=== PATIENT | male | born 1990 | race Caucasian/White ===

== ENCOUNTER 2023-06-23 07:37 | Emergency (ER) | payer OTHER, MEDICAID, SELFPAY ==
[2023-06-23 07:46] VITALS: BP 136/70; PULSE 71; RESP 18; TEMP 36.6; O2SAT 96
[2023-06-23] MEDS: ORPHENADRINE CITRATE 100 MG TABLET.ER PO (08:08)
[2023-06-23] MEDS: KETOROLAC 30 MG/ML VIAL (*BKC) IM (08:08)
--- NOTE | 2023-06-23 08:15 | ED.NECK ---
HPI - Neck Pain/Injury General Chief Complaint: Neck Pain/Injury Stated Complaint: neck pain Time Seen by Provider: 06/23/23 07:51 History of Present Illness HPI Narrative: This is a 32-year-old male, denies significant past medical history, presenting to the emergency department complaining of neck pain. The patient states he was in his usual state of health this morning when he yawned and turned his neck and felt a cramping dull pain on the right side. He denies recent trauma or manipulation of the neck. His pain is aggravated by attempts to turn the head towards the right. He denies weakness, numbness, loss of consciousness, bowel or bladder incontinence or loss of sensation in the groin. Related Data Allergies Allergy/AdvReac Type Severity Reaction Status Date / Time No Known Allergies Allergy Verified 06/23/23 07:51 Review of Systems Review of Systems: CONSTITUTIONAL: Denies fever, chills, or sweats. ENT: Denies rhinorrhea, congestion, sore throat, or otalgia. CARDIOVASCULAR: Denies chest pain, palpitations, or edema. RESPIRATORY: Denies cough or dyspnea. GASTROINTESTINAL: Denies abdominal pain, nausea, vomiting, or diarrhea. GENITOURINARY: Denies dysuria or hematuria. SKIN: Denies rash or itching. MUSCULOSKELETAL: Right-sided neck pain denies back pain, joint pain, or myalgia. NEUROLOGIC: Denies headache, numbness, dizziness, or weakness. PSYCHIATRIC: Denies anxiety or depression. PMFSH Past Medical History Medical History No significant past medical history Surgical History Surgical History No significant past surgical history Social History Social History (Updated 06/23/23 @ 08:20 by Christiano Huitron MD) Smoking status: Never smoker Alcohol intake: current Substance use: current Substance use type: marijuana Exam Narrative: GENERAL: Well-developed, well-nourished, and in no acute distress. HEAD: Normocephalic, atraumatic. EYES: PERRLA and EOMI. ENT: Nares clear, no rhinorrhea or epistaxis. Mucous membranes moist. Oropharynx without tonsillar hypertrophy exudate or other lesions. NECK: Supple. Muscle spasm of the left sternocleidomastoid, with mild tenderness to palpation of the right paraspinal muscles. No midline spine tenderness to palpation, no step-off or crepitus. No adenopathy or masses. No JVD CHEST: Clear to auscultation. No respiratory distress. No wheezes rales or rhonchi HEART: Regular rate and rhythm. No murmur heard. Normal peripheral pulses. ABDOMEN: Soft, nontender, nondistended, normal active bowel sounds. EXTREMITIES: Normal range of motion. No edema. SKIN: Warm, dry, no rash. NEURO: No focal deficits. Alert and oriented x3. PSYCH: Normal mood and affect. Course Course Emergency Course: 10:25 - On reevaluation, the patient states his pain is not significantly improved, however his range of motion and on exam has improved. Will discharge with recommendation for NSAIDs, lidocaine patches, muscle relaxants and follow-up with his primary care doctor. Discussed return and emergency precautions including signs/symptoms of cauda equina. Patient voiced understanding and is comfortable with the plan. All questions answered to his satisfaction. Vital Signs Vital signs: Vital Signs Temperature 97.8 F 06/23/23 07:46 Pulse Rate 71 06/23/23 07:46 Respiratory Rate 18 06/23/23 07:46 Blood Pressure 136/70 06/23/23 07:46 Pulse Oximetry 96 06/23/23 07:46 Oxygen Delivery Room Air 06/23/23 07:46 Temperature 97.8 F 06/23/23 07:46 Pulse Rate 71 06/23/23 07:46 Respiratory Rate 18 06/23/23 07:46 Blood Pressure 136/70 06/23/23 07:46 Pulse Oximetry 96 06/23/23 07:46 Oxygen Delivery Room Air 06/23/23 07:46 MDM - Neck Pain/Injury MDM Narrative Medical decision making narrative: Plan: Pain control, reassess Differen
[2023-06-23] MEDS: LIDOCAINE 5% PATCH 1 PATCH TRANSDERM (10:50)
[2023-06-23 11:01] VITALS: RESP 18
== END 2023-06-23 10:50 | disposition home or self-care (01) ==
PROVIDERS: Emergency Provider Preventive Medicine Aerospace Medicine
DX: S16.1XXA Strain of muscle, fascia and tendon at neck level, initial encounter (principal); X50.9XXA Other and unspecified overexertion or strenuous movements or postures, initial encounter
CPT/HCPCS: 96372; 99283; A9270; J1885

== ENCOUNTER 2024-10-14 12:37 | Outpatient (CLI) | payer BC, SELFPAY ==
--- NOTE | ~2024-10-14 | XR_ITS ---
EXAMINATION: XR lumbar spine 2-3V DATE: 10/14/2024 13:33 INDICATION: Chronic back pain. TECHNIQUE: 3 views of lumbar spine were obtained. COMPARISON: None. FINDINGS: Alignment is normal. Vertebral body heights and intervertebral disc heights are normal. The re is multilevel mild facet joint osteoarthritis. IMPRESSION: 1. Mild lumbar facet joint osteoarthritis. Reviewed, dictated and finalized at location A. F ENGINEER [employer]RILLING [employer] RECOVERY
--- NOTE | ~2024-10-14 | XR_ITS ---
EXAMINATION: XR sacrum coccyx min 2V DATE: 10/14/2024 13:33 INDICATION: Chronic back pain. TECHNIQUE: 3 views of the sacrum and coccyx were obtained. COMPARISON: None. FINDINGS: Alignment is normal. No fracture. The sacroiliac joints are normal. IMPRESSION: 1. Normal sacrum and coccyx. Reviewed, dictated and finalized at location A. MANAGER
[2024-10-14 13:12] LABS: Basophils Absolute Auto 0.1 K/mm3 (0.0-0.1); Basophils Percent Auto 1.2 % (0.2-1.2); Eosinophils Absolute Auto 0.5 K/mm3 (0-0.3); Eosinophils Percent Auto 5.9 % (0-4.4); Hemoglobin 15.5 g/dL (14.0-18.0); Immature Granulocyte Absolute 0.02 K/mm3 (0.00-0.031); Immature Granulocyte Percent A 0.3 % (0-0.5); Lymphocytes Absolute Auto 2.94 K/mm3 (0.9-3.2); Lymphocytes Percent Auto 38.8 % (18.3-44.2); Mean Corpuscular HGB Conc 33.7 g/dl (32-36); Mean Corpuscular Hemoglobin 31.6 pg (26-34); Mean Corpuscular Volume 93.7 fl (80-100); Mean Platelet Volume 10.5 fl (7.4-10.4); Monocytes Absolute Auto 1.3 K/mm3 (0.1-0.6); Monocytes Percent Auto 17.2 % (2.6-8.5); Neutrophils Absolute Auto 2.8 K/mm3 (1.3-6.7); Neutrophils Percent Auto 36.6 % (45.5-73.1); Platelet Count Result 213 k/mm3 (150-375); Red Blood Count 4.91 M/mm3 (4.6-6.20); White Blood Count 7.6 K/mm3 (4.5-10.0)
[2024-10-14 15:10] LABS: Free T4 Free Thyroxine 0.73 ng/mL (0.78-2.19)
[2024-10-14 16:22] LABS: Alanine Aminotransferase 36 U/L (6-50); Albumin Level 4.5 g/dL (3.5-5.1); Alkaline Phosphatase 44 U/L (38-126); Anion Gap 9 mmol/L (4-12); Aspartate Amino Transferase 36 U/L (17-59); Bilirubin,Total 0.4 mg/dL (0.2-1.3); Blood Urea Nitrogen 15 mg/dL (9-20); Calcium 9.4 mg/dL (8.4-10.2); Carbon Dioxide 24 mmol/L (22-30); Chloride 104 mmol/L (98-107); Cholesterol 223 mg/dL (0-200); Estimated Glomerular Filt Rate > 60; Glucose 87 mg/dL (65-110); HDL Direct 45 mg/dL; Potassium 4.2 mmol/L (3.4-5.0); Sodium 137 mmol/L (137-145); Triglycerides 193 mg/dL (<150)
[2024-10-14 16:34] LABS: LDL Cholesterol Direct 124 mg/dL
[2024-10-14 16:53] LABS: Total Triiodothyronine (T3) 1.17 NG/ML (0.97-1.69)
== END 2024-10-14 12:38 | disposition home or self-care (01) ==
PROVIDERS: Visit Provider Registered Nurse
DX: G89.29 Other chronic pain (principal); M54.9 Dorsalgia, unspecified; E78.5 Hyperlipidemia, unspecified; R53.83 Other fatigue
CPT/HCPCS: 36415; 72100; 72220; 80053; 80061; 84439; 84443; 84480; 85025

== ENCOUNTER 2024-12-29 02:21 | Emergency (ER) | payer BC, SELFPAY ==
--- NOTE | ~2024-12-29 | CT_ITS ---
EXAMINATION: CTA chest PE abdomen pel DATE: 12/29/2024 04:15 INDICATION: Chest and abdominal pain. TECHNIQUE: Computed tomography (CT) pulmonary angiogram of the chest was performed with 100 mL Omnipa que-350 intravenous contrast. Additional 3D reconstructions utilizing coronal maximum intensity proje ction (MIP) were performed. CT of the abdomen and pelvis was performed with intravenous contrast util izing the same contrast bolus following a short delay. Automated exposure control and iterative recon struction technique were employed. The dose-length product was 1413.08 mGy-cm. COMPARISON: None FINDINGS: Chest: No pulmonary embolism. Mild emphysema. Mild bibasilar and dependent atelectasis in the bilateral lowe r lungs. No pneumonia, pulmonary edema or pleural effusion. Heart size is normal. No pericardial effu sharon. Thoracic aorta is normal in caliber with no dissection. There is small amount of residual thymi c tissue in the anterior mediastinum. No pathologically enlarged thoracic lymphadenopathy. Mild thora columbar spondylosis with mild likely physiologic anterior wedging at T12. Abdomen/pelvis: Liver, gallbladder, spleen, pancreas, bilateral adrenal glands and kidneys are normal. Bowels includi ng the appendix are normal. Bladder is normal. Small fat-containing right inguinal hernia. No free in traperitoneal gas or fluid. No pathologically enlarged abdominal or pelvic lymphadenopathy. Right int ratrochanteric bone island. IMPRESSION: 1. Mild atelectasis in the bilateral lower lungs. No pulmonary embolism or other acute cardiopulmonar y disease. 2. No acute intra-abdominal/pelvic process. Reviewed, dictated and finalized at location A. NG IN LINE FEEDER IMPRESSION: 1. Mild atelectasis in the bilateral lower lungs. No pulmonary embolism or othe r acute cardiopulmonary disease. 2. No acute intra-abdominal/pelvic process.
--- NOTE | ~2024-12-29 | XR_ITS ---
EXAMINATION: XR chest 1V portable DATE: 12/29/2024 03:12 INDICATION: Shortness of breath TECHNIQUE: frontal view of the chest was obtained. COMPARISON: Chest CT dated 12/29/2024 FINDINGS: Decreased lung volumes with streaky mild bibasilar atelectasis. No pulmonary edema, pleural effusion or pneumothorax. The cardiomediastinal silhouette is normal. Visualized bones and soft tissues are un remarkable. IMPRESSION: 1. Small lung volumes with mild bibasilar atelectasis. Reviewed, dictated and finalized at location A. RVISOR SEWING DEPARTMENT
--- OUTSIDE RECORDS SUMMARY | 2024-12-29 02:23 | XMS_ITS | Clinical Summary ---
Author Organization [facility] Address [address] [place] [address] Phone Care Team Providers Care Credit Risk Modeler Name Role Phone Unavailable Primary Care Provider Unavailabl e Allergies No known active allergies Medications HYDROcodone-jonny taminophen (NORCO) 5-325 mg tabletIndicatio ns:Intercostal muscle strain, initial encounter Take 1 Tablet by mouth every 4 hours as needed for Pain. Max Daily Amount: 6 Tablets 10 Tablet 12/27/2024 Active methocarbamoL (ROBAXIN) 500 mg tablet Take 1 Tablet (500 mg) by mouth 4 times daily. 30 Tablet 12/27/2024 Active Encounters Date Type Department Care Team Description 12/27/2024 9:29 AM EMPLOYEE SERVICES MANAGER - 12/27/2024 1:03 PM EMPLOYEE SERVICES MANAGER Emergency [facility] Emergency Department [id number] [place] [address] Intercostal muscle strain, initial encounter (Primary Dx) Discharge Disposition: Home or Self Care 12/27/2024 Travel from Last 3 Months Social History Tobacco Use Types Packs/Day Years Used Date Smoking Tobacco: Unknown Tobacco Cessation:Counseling Given: Not Answered Feeling Safe Answer Date Recorded Are you in a relationship wi th someone who hurts you emotionally and/or physically? No 12/27/2024 Sex and Gender Information Value Date Recorded Sex Assigned at Not on file Legal Sex Male 8:46 AM EMPLOYEE SERVICES MANAGER Gender Identity Not on file Sexual Orientation Not on file Last Filed Vital Signs Vital Sign Reading Time Taken Comments Blood Pressure 115/67 12/27/2024 12:33 PM EMPLOYEE SERVICES MANAGER Pulse 56 12/27/2024 12:33 PM EMPLOYEE SERVICES MANAGER Temperature 36.7 ??C (98.1 ??F) 12/27/2024 8:50 AM CS T Respiratory Rate 19 12/27/2024 8:50 AM EMPLOYEE SERVICES MANAGER Oxygen Saturation 98% 12/27/2024 12:33 PM EMPLOYEE SERVICES MANAGER Inhaled Oxygen Concentration - - Weight 104.3 kg (230 lb) 12/27/2024 8:50 AM EMPLOYEE SERVICES MANAGER Height 177.8 cm (5' 10 ) 12/27/2024 8:50 AM EMPLOYEE SERVICES MANAGER Body Mass Index 33 12/27/2024 8:50 AM EMPLOYEE SERVICES MANAGER Plan of Treatment Health Maintenance Due Date Last Done Comments DTAP/TDAP/TD VACCINES (1 - Tdap) 2009 HEPATITIS B VACCINES (1 of 3 - 19+ 3-dose series) 2009 INFLUENZA VACCINE (#1) 2024 HPV VACCINES Aged Out No longer eligi ble based on patient's age to complete this topic Procedures Procedure Name Priority Date/Time Associated Diagnosis Comments XR RIBS UNILATERAL RIGHT W PA CHEST Stat 12/27/2024 10:27 AM EMPLOYEE SERVICES MANAGER COMPREHENSIVE METABOLIC PANEL Stat 12/27/2024 8:58 AM EMPLOYEE SERVICES MANAGER CBC WITH DIFFERENTIAL Stat 12/27/2024 8:58 AM EMPLOYEE SERVICES MANAGER from Last 3 Months Results * XR RIBS UNILATERAL RIGHT W PA CHEST (12/27/2024 10:27 AM EMPLOYEE SERVICES MANAGER) Anatomical Region Laterality Modality Chest Computed Radiogr aphy 12/27/2024 10:2 7 AM EMPLOYEE SERVICES MANAGER Impressions 12/27/2024 10:32 AM EMPLOYEE SERVICES MANAGER IMPRESSION: 1. No acute pulmonary disease. 2. No rib fracture. DICTATION LOCATION: Location 7 [facility] 12/27/2024 10:32 AM EMPLOYEE SERVICES MANAGER XR RIBS UNILATERAL RIGHT W PA CHEST DATE: 12/27/2024 10:27 AM HISTORY: Pain. FINDINGS: The heart size is normal. The lungs are clear. No pleural effusion or pneumothorax present. The ribs are intact. No fracture or displacement. Procedure Note Ayaz Rosales MD - 12/27/2024 XR RIBS UNILATERAL RIGHT W PA CHEST DATE: 12/27/2024 10:27 AM HISTORY: Pain. FINDINGS: The heart size is normal. The lungs are clear. No pleural effusion or pneumothorax present. The ribs are intact. No fracture or displacement. IMPRESSION: 1. No acute pulmonary disease. 2. No rib fracture. DICTATION LOCATION: Location 7 - [facility] ORDERABL ES Final Result * (ABNORMAL) CBC WITH DIFFERENTIAL (12/27/2024 8:58 AM EMPLOYEE SERVICES MANAGER) WBC 10.0(H) 4.0 - 9.8 K/uL 12/27/2024 9:10 AM [facility] RBC 4.94 4.50 - 5.40 M/uL 12/27/2024 9:10 AM [facility] HEMOGLOBIN 15.7 13.6 - 16.5 g/dL 12/27/2024 9:10 AM [facility] HEMATOCRIT 46.1 40.0 - 48.0 % 12/27/2024 9:10 AM [facility] MCV 93.3 82.0 - 99.0 fL 12/27/2024 9:10 AM [facility] MCH 31.8 27.2 - 32.6 pg 12/27/2024 9:10 AM [facility] MCHC 34.1 31.5 - 35.5 g/dL 12/27/2024 9:10 AM [facility] RDW 13.2 11.5 - 14.5 % 12/27/2024 9:10 AM [facility] RDW-STDEV 45.0 37.1 - 48.7 fL 12/27/2024 9:10 AM [facility] PLATELETS 248 140 - 350 K/uL 12/27/2024 9:10 AM [facility] MPV 10.1 9.3 - 12.4 fL 12/27/2024 9:10 AM [facility] NEUTROPHILS 44 % 12/27/2024 9:10 AM [facility] LYMPHOCYTES 40 % 12/27/2024 9:10 AM [facility] MONOCYTES 11 % 12/27/2024 9:10 AM EMPLOYEE SERVICES MANAGER [facility] EOSINOPHILS 4 % 12/27/2024 9:10 AM [facility] BASOPHILS 1 % 12/27/2024 9:10 AM [facility] IMMATURE GRANULOCYTES 1 % 12/27/2024 9:10 AM [facility] Comment:IG (Immature Granulo cyte) count includes Metamyelocytes, Myelocytes, and Promyelocytes NEUTROPHIL ABSOLUTE 4.41 1.90 - 7.00 K/uL 12/27/2024 9:10 AM [facility] LYMPHOCYTE ABSOLUTE 3.97 0.70 - 4.50 K/uL 12/27/2024 9:10 AM [facility] MONOCYTE ABSOLUTE 1.05 0.10 - 1.30 K/uL 12/27/2024 9:10 AM [facility] EOSINOPHIL ABSOLUTE 0.35 0.00 - 0.70 K/uL 12/27/2024 9:10 AM [facility] BASOPHILS ABSOLUTE 0.11 0.00 - 0.20 K/uL 12/27/2024 9:10 AM [facility] IMMATURE GRANULOCYTES ABSOLUTE 0.08(H) 0.00 - 0.03 K/uL 12/27/2024 9:10 AM [facility] Blood Venipuncture / Unknown 12/27/2024 8:58 AM EMPLOYEE SERVICES MANAGER 12/27/2024 9:03 AM EMPLOYEE SERVICES MANAGER us Protocol [facility] MD HEMATOLOGY ORDERABLES Final Result [facility] CLIA# [id number] [place] [address] * (ABNORMAL) COMPREHENSIVE METABOLIC PANEL (12/27/2024 8:58 AM EMPLOYEE SERVICES MANAGER) SODIUM 139 136 - 145 mmol/L 12/27/2024 9:35 AM [facility] POTASSIUM 4.3 3.4 - 5.1 mmol/L 12/27/2024 9:35 AM [facility] CHLORIDE 105 98 - 107 mmol/L 12/27/2024 9:35 AM [facility] CO2 24 22 - 29 mmol/L 12/27/2024 9:35 AM [facility] CALCIUM 9.9 8.6 - 10.4 mg/dL 12/27/2024 9:35 AM [facility] BUN 21(H) 6 - 20 mg/dL 12/27/2024 9:35 AM [facility] CREATININE 1.09 0.67 - 1.17 mg/dL 12/27/2024 9:35 AM [facility] GLUCOSE 116(H) 74 - 99 mg/dL 12/27/2024 9:35 AM [facility] TOTAL PROTEIN 6.9 6.3 - 8.7 g/dL 12/27/2024 9:35 AM [facility] ALBUMIN 4.2 3.5 - 5.2 g/dL 12/27/2024 9:35 AM [facility] BILIRUBIN TOTAL 0.3 0.3 - 1.2 mg/dL 12/27/2024 9:35 AM [facility] ALKALINE PHOSPHATASE 49 40 - 150 U/L 12/27/2024 9:35 AM [facility] AST 20 0 - 41 U/L 12/27/2024 9:35 AM [facility] ALT 25 0 - 41 U/L 12/27/2024 9:35 AM [facility] GFR >60 >=60 mL/min/1.7 3 sq meter 12/27/2024 9:35 AM [facility] Comment:eGFR calculated with 2020 CKD-EPI equation. Vegetarian diet, extremely high or low muscle mass, and may affect results. Cystatin C with Glomerular Filtration Rate is a suitable alternative for these patients. ANION GAP 10 8 - 16 mmol/L 12/27/2024 9:35 AM [facility] Blood Venipuncture / Unknown 12/27/2024 8:58 AM EMPLOYEE SERVICES MANAGER 12/27/2024 9:07 AM EMPLOYEE SERVICES MANAGER us Protocol [facility] MD CHEMISTRY ORDERABLES Final Result [facility] CLIA# [id number] [place] [address] from Last 3 Months Insurance [facility] MYKEL MARTINEZ [id number]
--- OUTSIDE RECORDS SUMMARY | 2024-12-29 02:23 | XMS_ITS | Referral Summary ---
Author Organization [facility] Address [address] [place] [address] Care Team Providers Care Back Gray Cloth Washer Name Role Phone Haroon Landon MD Primary Care Provider [phone] Geovanna Blum MD Unavailable [phone] Encounters Date Type Department Care Team Description 11/13/2024 1:00 PM FABRIC WORKER SUPERVISOR Clinical Support [facility] Reproductive Endocrinology Lab [address] [address] Encounter for fertility testing (Primary Dx) 11/13/2024 7:02 AM FABRIC WORKER SUPERVISOR - 11/13/2024 11:59 PM FABRIC WORKER SUPERVISOR Hospital Encounter [facility] [address] [address] Discharge Disposition: Discharge to home or self care from Last 3 Months Allergies Active Allergy Reactions Criticality Noted Date Comments No Known Allergies Other (See comments) Low Reaction: Medications SUMAtriptan (IMITREX) 50 mg tabletIndicatio ns:Migraine 0 05/09/2018 Active fluticasone (FLONASE) 50 mcg/actuation nasal spray SPRAY 2 SPRAYS IN EACH NOSTRIL EVERY DAY 06/26/2017 Active Active Problems No known active problems Social History Tobacco Use Types Packs/Day Years Used Date Smoking Tobacco: Every Day Smokeless Tobacco: Never Sex and Gender Information Value Date Recorded Sex Assigned at Not on file Legal Sex Male 6:50 PM FABRIC WORKER SUPERVISOR Gender Identity Male 06/01/2018 12:33 PM CDT Sexual Orientation Not on file Last Filed Vital Signs Vital Sign Reading Time Taken Comments Blood Pressure 146/87 07/13/2018 1:52 PM CDT Pulse 57 07/13/2018 1:52 PM CDT Temperature 36.4 ??C (97.5 ??F) 05/11/2018 7:43 PM CD T Respiratory Rate 18 05/11/2018 9:56 PM CDT Oxygen Saturation 98% 05/11/2018 7:43 PM CDT Inhaled Oxygen Concentration - - Weight 90.7 kg (200 lb) 05/11/2018 7:43 PM CDT Height 177.8 cm (5' 10 ) 05/11/2018 7:43 PM CDT Body Mass Index 28.7 05/11/2018 7:43 PM CDT Plan of Treatment Not on file Procedures Procedure Name Priority Date/Time Associated Diagnosis Comments POCT SEMEN Routine 11/13/2024 1:31 PM FABRIC WORKER SUPERVISOR Encounter for fertility testing from Last 3 Months Results * POCT semen (11/13/2024 1:31 PM FABRIC WORKER SUPERVISOR) Volume, Semen POC 4.7 >=1.4 ML Viscosity, Semen, POC Normal Sperm Concentration (M/mL) 61.9 >=16 M/mL pH, Semen, POC 8.5 >=7.2 Progressive Motility (%), POC 45 >=32 % Total Motility, (%), POC 70 >=40 % Total Progressive Motile Count (TPMC) (M), POC 131.1 >=6.7 M Total Motile Count (TMC) (M), POC 204.4 >=9.4 M Normal Morphology, (%) POC 6 >=4 % Viability, (%), POC Comment:N/A DAYS OF ABSTINENCE, SEMEN, POC 3 2 - 5 day(s) Partner Info - Semen Analysis Comment:YANI DONALDSON Semen 11/13/2024 1:31 PM FABRIC WORKER SUPERVISOR Seema Pete BS - 11/13/2024 2:34 PM FABRIC WORKER SUPERVISOR Rito Mary Veras MD POINT OF CARE TEST O RDERABLES Final Result from Last 3 Months Insurance [employer] Care Teams Back Gray Cloth Washer Relationship Specialty Start Date End Date Haroon Landon MD [address] [address] PCP - General Family Medicine 10/04/24 Geovanna Blum MD [address] [address] Pediatrics 10/04/24
--- OUTSIDE RECORDS SUMMARY | 2024-12-29 02:24 | XMS_ITS | Clinical Summary ---
Author Organization [facility] Address [address] [place] [address] Care Team Providers Care Machine Operator Hay Stacker Name Role Phone Haroon Landon MD Primary Care Provider [phone] Geovanna Blum MD Unavailable [phone] Allergies Active Allergy Reactions Criticality Noted Date Comments No Known Allergies Other (See comments) Low Reaction: Medications SUMAtriptan (IMITREX) 50 mg tabletIndicatio ns:Migraine 0 05/09/2018 Active fluticasone (FLONASE) 50 mcg/actuation nasal spray SPRAY 2 SPRAYS IN EACH NOSTRIL EVERY DAY 06/26/2017 Active Active Problems No known active problems Encounters Date Type Department Care Team Description 11/13/2024 1:00 PM BULK MATERIALS HANDLING PLANT OPERATOR Clinical Support [facility] Reproductive Endocrinology Lab [address] [place] [address] [place] [address] Encounter for fertility testing (Primary Dx) 11/13/2024 7:02 AM BULK MATERIALS HANDLING PLANT OPERATOR - 11/13/2024 11:59 PM BULK MATERIALS HANDLING PLANT OPERATOR Hospital Encounter [facility] [address] [place] [address], [address] [place] [address] Discharge Disposition: Discharge to home or self care from Last 3 Months Surgical History Surgery Date Site/Laterality Comments [place] RHINOPLASTY PRIMARY W/TERA OR SEPTAL REPAIR Complete Rhinoplasty (With Major Septal Repair) - (Added by ANNALISA Conv) [place] FRACTURE NASAL INFERIOR TURBINATE THERAPEUTIC Therapeutic Fracture Nasal Turbinate - (Added by ANNALISA Conv) Medical History Medical History Date Comments Personal history of other di seases of the nervous system and sense organs History of migrain e headaches - (Added by TW Conv) Family History Medical History Relation Name Comments No Known Problems Mother Relation Name Status Comments Mother Social History Tobacco Use Types Packs/Day Years Used Date Smoking Tobacco: Every Day Smokeless Tobacco: Never Sex and Gender Information Value Date Recorded Sex Assigned at Not on file Legal Sex Male 6:50 PM BULK MATERIALS HANDLING PLANT OPERATOR Gender Identity Male 06/01/2018 12:33 PM CDT Sexual Orientation Not on file Obstetrics History Last Filed Vital Signs Vital Sign Reading [...] 05/11/2018 7:43 PM CDT Plan of Treatment Health Maintenance Due Date Last Done Comments Depression Screening 1990 Hepatitis C Screening 1990 Pneumococcal vaccine <65 (1 of 2 - PCV) 1996 DTaP/Tdap/Td Vaccine (1 - Tdap) 2001 Varicella Vaccines (1 of 2 - 13+ 2-dose series) 2003 Hepatitis B Screening 2008 Regular Well Visit/Exam 18-64 2008 Covid-19 Vaccine (2 - 2023-2 5 season) 2024 11/15/2021 Influenza Vaccine (#1) 2024 HPV Vaccines Aged Out No longer eligi ble based on patient's age to complete this topic Procedures Procedure Name Priority Date/Time Associated Diagnosis Comments POCT SEMEN Routine 11/13/2024 1:31 PM BULK MATERIALS HANDLING PLANT OPERATOR Encounter for fertility testing from Last 3 Months Results * POCT semen (11/13/2024 1:31 PM BULK MATERIALS HANDLING PLANT OPERATOR) Volume, Semen POC 4.7 >=1.4 ML Viscosity, [...] Analysis Comment:YANI DONALDSON Semen 11/13/2024 1:31 PM BULK MATERIALS HANDLING PLANT OPERATOR Seema Pete, BS - 11/13/2024 2:34 PM RAYMUNDO Veras Mary Veras MD POINT OF CARE TEST O RDERABLES Final Result from Last 3 Months Insurance [facility] Member Subscriber Plan / Payer (Ef fective 2017-Present) Name:Luis Felipe Relation to Subscriber:Self Name:Luis Felipe Payer ID:[id number] (NAIC) Group ID:Not on file Type:MEDICAID RISK OTHER Address: [address] [employer] Care Teams Machine Operator Hay Stacker Relationship Specialty Start Date End Date Haroon Landon MD [address] [address] PCP - General Family Medicine 10/04/24 Geovanna Blum MD [address] [facility] [address] [address] Pediatrics 10/04/24
[2024-12-29 03:03] LABS: Basophils Absolute Auto 0.1 K/mm3 (0.0-0.1); Basophils Percent Auto 0.8 % (0.2-1.2); Eosinophils Absolute Auto 0.6 K/mm3 (0-0.3); Eosinophils Percent Auto 4.8 % (0-4.4); Hematocrit 44.9 % (42.0-52.0); Hemoglobin 15.2 g/dL (14.0-18.0); Immature Granulocyte Absolute 0.05 K/mm3 (0.00-0.031); Immature Granulocyte Percent A 0.4 % (0-0.5); Lymphocytes Absolute Auto 4.75 K/mm3 (0.9-3.2); Lymphocytes Percent Auto 36.7 % (18.3-44.2); Mean Corpuscular HGB Conc 33.9 g/dl (32-36); Mean Corpuscular Hemoglobin 32.1 pg (26-34); Mean Corpuscular Volume 94.7 fl (80-100); Mean Platelet Volume 10.4 fl (7.4-10.4); Monocytes Absolute Auto 1.2 K/mm3 (0.1-0.6); Monocytes Percent Auto 8.9 % (2.6-8.5); Neutrophils Absolute Auto 6.3 K/mm3 (1.3-6.7); Neutrophils Percent Auto 48.4 % (45.5-73.1); Platelet Count Result 222 k/mm3 (150-375); Red Blood Count 4.74 M/mm3 (4.6-6.20); Red Cell Distribution Width 13.2 % (11.5-14.5)
--- NOTE | 2024-12-29 03:05 | ECG_ITS ---
Test Date: 2024-12-29 03:24:10 Measurements Intervals [place] Rate: 60 P: 25 ND: 155 QRS: 0 QRSD: 87 T: 2 QT: 363 QTc: 364 Interpretive Statements SINUS RHYTHM WITH SINUS ARRHYTHMIA VOLTAGE CRITERIA FOR LVH CONSIDER INFERIOR INFARCT, AGE INDETERMINATE BASELINE ARTIFACT- I, II, AVR, AVL, AVF, V4-V6 ABNORMAL ECG No previous ECG available for comparison Electronically Signed On 12-29-2024 08:17:57 HYDROELECTRIC PLANT MECHANICAL ENGINEER by Allen Fajardo D.O.
[2024-12-29] MEDS: MORPHINE SULFATE (*CRX) 4 MG/ML INJ IV PUSH (03:09)
--- OUTSIDE RECORDS SUMMARY | 2024-12-29 03:19 | XMS_ITS | Clinical Summary ---
Author Organization [facility] Address [address] [place] [address] Phone Care Team Providers Care Excelsior Machine Feeder Name Role Phone Unavailable Primary Care Provider [...] Department Care Team Description 12/27/2024 9:29 AM HORTICULTURAL SPECIALTY GR[employer] FIELD - 12/27/2024 1:03 PM [employer]ICULTURAL [employer]TY [employer] Emergency [facility] Emergency Department [address] [place] [address] Intercostal muscle strain, initial encounter [...] on file Legal Sex Male 8:46 AM HORTICULTURAL SPECIALTY [employer] Gender Identity Not on file Sexual Orientation Not on file Last Filed Vital Signs Vital Sign Reading Time Taken Comments Blood Pressure 115/67 12/27/2024 12:33 PM [employer]IC[employer] Pulse 56 12/27/2024 12:33 PM [employer] Temperature 36.7 ??C (98.1 ??F) 12/27/2024 8:50 AM CS T Respiratory Rate 19 12/27/2024 8:50 AM [employer]ICULT[employer] Oxygen Saturation 98% 12/27/2024 12:33 PM [employer]IC[employer] Inhaled Oxygen Concentration - - Weight 104.3 kg (230 lb) 12/27/2024 8:50 AM [employer] Height 177.8 cm (5' 10 ) 12/27/2024 8:50 AM [employer] Body Mass Index 33 12/27/2024 8:50 AM [employer]IC[employer] Plan of Treatment Health Maintenance Due Date [...] W PA CHEST Stat 12/27/2024 10:27 AM [employer] COMPREHENSIVE METABOLIC PANEL Stat 12/27/2024 8:58 AM [employer] CBC WITH DIFFERENTIAL Stat 12/27/2024 8:58 AM [employer]IC[employer] from Last 3 Months Results * XR RIBS UNILATERAL RIGHT W PA CHEST (12/27/2024 10:27 AM HORTICULTURAL SPECIALTY [employer]) Anatomical Region Laterality Modality Chest Computed Radiogr aphy 12/27/2024 10:2 7 AM [employer] Impressions 12/27/2024 10:32 AM [employer] IMPRESSION: 1. No acute pulmonary disease. 2. No rib fracture. DICTATION LOCATION: Location 7 [facility] 12/27/2024 10:32 AM [employer]ICULTURAL SPECIALTY [employer] XR RIBS UNILATERAL RIGHT W PA CHEST [...] rib fracture. DICTATION LOCATION: Location 7 - [facility] [employer] HOGUE DIAGNOSTIC IMAGING ORDERABL ES Final Result * (ABNORMAL) CBC WITH DIFFERENTIAL (12/27/2024 8:58 AM H[employer]ICULTURAL [employer]) WBC 10.0(H) 4.0 - 9.8 K/uL 12/27/2024 9:10 AM [facility] [employer] [facility] RBC 4.94 4.50 - 5.40 M/uL 12/27/2024 9:10 AM [facility] [employer] [facility] HEMOGLOBIN 15.7 13.6 - 16.5 g/dL 12/27/2024 9:10 AM [facility] [employer] [facility] HEMATOCRIT 46.1 40.0 - 48.0 % 12/27/2024 9:10 AM [facility] [employer] [facility] MCV 93.3 82.0 - 99.0 fL 12/27/2024 9:10 AM [facility] [employer] [facility] MCH 31.8 27.2 - 32.6 pg 12/27/2024 9:10 AM [facility] [employer] [facility] MCHC 34.1 31.5 - 35.5 g/dL 12/27/2024 9:10 AM [facility] [employer] [facility] RDW 13.2 11.5 - 14.5 % 12/27/2024 9:10 AM [facility] [employer] [facility] RDW-STDEV 45.0 37.1 - 48.7 fL 12/27/2024 9:10 AM [facility] [employer] [facility] PLATELETS 248 140 - 350 K/uL 12/27/2024 9:10 AM [facility] [employer] [facility] MPV 10.1 9.3 - 12.4 fL 12/27/2024 9:10 AM [facility] [employer] [facility] NEUTROPHILS 44 % 12/27/2024 9:10 AM [facility] [employer] [facility] LYMPHOCYTES 40 % 12/27/2024 9:10 AM [facility] [employer] [facility] MONOCYTES 11 % 12/27/2024 9:10 AM [employer] [facility] [employer] [facility] EOSINOPHILS 4 % 12/27/2024 9:10 AM [facility] BASOPHILS 1 % 12/27/2024 9:10 AM [facility] IMMATURE GRANULOCYTES 1 % 12/27/2024 9:10 AM [facility] Comment:IG (Immature Granulo cyte) count includes Metamyelocytes, Myelocytes, and Promyelocytes NEUTROPHIL ABSOLUTE 4.41 1.90 - 7.00 K/uL 12/27/2024 9:10 AM [facility] LYMPHOCYTE ABSOLUTE 3.97 0.70 - 4.50 K/uL 12/27/2024 9:10 AM [facility] MONOCYTE ABSOLUTE 1.05 0.10 - 1.30 K/uL 12/27/2024 9:10 AM [facility] EOSINOPHIL ABSOLUTE 0.35 0.00 - 0.70 K/uL 12/27/2024 9:10 AM [facility] BASOPHILS ABSOLUTE 0.11 0.00 - 0.20 K/uL 12/27/2024 9:10 AM [facility] IMMATURE GRANULOCYTES ABSOLUTE 0.08(H) 0.00 - 0.03 K/uL 12/27/2024 9:10 AM [facility] Blood Venipuncture / Unknown 12/27/2024 8:58 AM [employer] 12/27/2024 9:03 AM [employer] us Protocol [facility] Emergency MD HEMATOLOGY ORDERABLES Final Result [facility] CLIA# [id number] [place] [address] * (ABNORMAL) COMPREHENSIVE METABOLIC PANEL (12/27/2024 8:58 AM [employer]) SODIUM 139 136 - 145 mmol/L 12/27/2024 9:35 AM [facility] POTASSIUM 4.3 3.4 - 5.1 mmol/L 12/27/2024 9:35 AM [facility] CHLORIDE 105 98 - 107 mmol/L 12/27/2024 9:35 AM [facility] CO2 24 22 - 29 mmol/L 12/27/2024 9:35 AM [facility] CALCIUM 9.9 8.6 - 10.4 mg/dL 12/27/2024 9:35 AM [facility] BUN 21(H) 6 - 20 mg/dL 12/27/2024 9:35 AM [facility] CREATININE 1.09 0.67 - 1.17 mg/dL 12/27/2024 9:35 AM [facility] GLUCOSE 116(H) 74 - 99 mg/dL 12/27/2024 9:35 AM [facility] TOTAL PROTEIN 6.9 6.3 - 8.7 g/dL 12/27/2024 9:35 AM [facility] ALBUMIN 4.2 3.5 - 5.2 g/dL 12/27/2024 9:35 AM [facility] BILIRUBIN TOTAL 0.3 0.3 - 1.2 mg/dL 12/27/2024 9:35 AM [facility] ALKALINE PHOSPHATASE 49 40 - 150 U/L 12/27/2024 9:35 AM [facility] AST 20 0 - 41 U/L 12/27/2024 9:35 AM [facility] ALT 25 0 - 41 U/L 12/27/2024 9:35 AM [facility] GFR >60 >=60 mL/min/1.7 3 sq meter 12/27/2024 9:35 AM [facility] Comment:eGFR calculated with 2020 CKD-EPI equation. Vegetarian diet, extremely high or low muscle mass, and may affect results. Cystatin C with Glomerular Filtration Rate is a suitable alternative for these patients. ANION GAP 10 8 - 16 mmol/L 12/27/2024 9:35 AM [facility] Blood Venipuncture / Unknown 12/27/2024 8:58 AM [employer] 12/27/2024 9:07 AM [employer] us Protocol [facility] Emergency MD CHEMISTRY ORDERABLES Final Result [facility] CLIA# [id number] [place] [address] from Last 3 Months Insurance [facility]AN MD MYKEL MARTINEZ [id number]
--- OUTSIDE RECORDS SUMMARY | 2024-12-29 03:19 | XMS_ITS | Clinical Summary ---
Author Organization [facility] Address [address] [place] [address] Care Team Providers Care Alley Tender Name Role Phone Haroon Landon MD Primary Care Provider [phone] Geovanna Blum MD Unavailable [phone] Allergies Active Allergy Reactions Criticality Noted Date Comments No Known Allergies Other (See comments) Low Reaction: Medications SUMAtriptan (IMITREX) 50 mg tabletIndicatio ns:Migraine 0 05/09/2018 Active fluticasone (FLONASE) 50 mcg/actuation nasal spray SPRAY 2 SPRAYS IN EACH NOSTRIL EVERY DAY 06/26/2017 Active Active Problems No known active problems Encounters Date Type Department Care Team Description 11/13/2024 1:00 PM FLOOR SERVICE WORKER SPRING Clinical Support [facility] [address] [place] [address] Encounter for fertility testing (Primary Dx) 11/13/2024 7:02 AM FLOOR SERVICE WORKER SPRING - 11/13/2024 11:59 PM FLOOR SERVICE WORKER SPRING Hospital Encounter [facility] [address], [address] [place] [address] Discharge Disposition: Discharge to home or self care from Last 3 Months Surgical History Surgery Date Site/Laterality Comments GA RHINOPLASTY PRIMARY W/TERA OR SEPTAL REPAIR Complete Rhinoplasty (With Major Septal Repair) - (Added by ANNALISA Conv) GA FRACTURE NASAL INFERIOR TURBINATE THERAPEUTIC Therapeutic Fracture [...] on file Legal Sex Male 6:50 PM FLOOR SERVICE WORKER SPRING Gender Identity Male 06/01/2018 12:33 PM CDT [...] Comments POCT SEMEN Routine 11/13/2024 1:31 PM FLOOR SERVICE WORKER [employer] Encounter for fertility testing from Last 3 Months Results * POCT semen (11/13/2024 1:31 PM FLOOR SERVICE WORKER SPRING) Volume, Semen POC 4.7 >=1.4 ML Viscosity, [...] Analysis Comment:YANI DONALDSON Semen 11/13/2024 1:31 PM FLOOR SERVICE WORKER [employer]ING Seema Pete, BS - 11/13/2024 2:34 PM RAYMUNDO Veras Mary Veras MD POINT OF CARE TEST O RDERABLES Final Result from Last 3 Months Insurance [facility] Member Subscriber Plan / Payer (Ef fective 2017-Present) Name:Luis Felipe Relation to Subscriber:Self Name:Luis Felipe Payer ID:[id number] (NAIC) Group ID:Not on file Type:MEDICAID RISK OTHER Address: [address] [employer] Care Teams Alley Tender Relationship Specialty Start Date End Date Haroon Landon MD [address] [address] PCP - General Family Medicine 10/04/24 Geovanna Blum MD [facility] [facility] [address] [address] Pediatrics 10/04/24
--- OUTSIDE RECORDS SUMMARY | 2024-12-29 03:19 | XMS_ITS | Referral Summary ---
Author Organization [facility] Address [address] [place] [address] Care Team Providers Care Missileman Name Role Phone Haroon Landon MD Primary Care Provider Geovanna Blum MD Unavailable [phone] Encounters Date Type Department Care Team Description 11/13/2024 1:00 PM PLACEMENT DIRECTOR Clinical Support [facility] Reproductive Endocrinology Lab [address] [address] Encounter for fertility testing (Primary Dx) 11/13/2024 7:02 AM PLACEMENT DIRECTOR - 11/13/2024 11:59 PM PLACEMENT DIRECTOR Hospital Encounter [facility] [address] [address] Discharge Disposition: Discharge to home [...] on file Legal Sex Male 6:50 PM PLACEMENT DIRECTOR Gender Identity Male 06/01/2018 12:33 PM CDT [...] Comments POCT SEMEN Routine 11/13/2024 1:31 PM PLACEMENT DIRECTOR Encounter for fertility testing from Last 3 Months Results * POCT semen (11/13/2024 1:31 PM PLACEMENT DIRECTOR) Volume, Semen POC 4.7 >=1.4 ML Viscosity, [...] Analysis Comment:YANI DONALDSON Semen 11/13/2024 1:31 PM PLACEMENT DIRECTOR Seema Pete BS - 11/13/2024 2:34 PM PLACEMENT DIRECTOR Rito Mary Veras MD POINT OF CARE TEST O RDERABLES Final Result from Last 3 Months Insurance [employer] Care Teams Missileman Relationship Specialty Start Date End Date Haroon Landon MD [address] [address] PCP - General Family Medicine 10/04/24 Geovanna Blum MD [address] [address] Pediatrics 10/04/24
[2024-12-29 03:24] LABS: Lactic Acid Reflex 1.3 mmol/L (0.7-2.0)
[2024-12-29 03:33] LABS: Alanine Aminotransferase 23 U/L (6-50); Albumin Level 3.8 g/dL (3.5-5.1); Alkaline Phosphatase 47 U/L (38-126); Anion Gap 7 mmol/L (4-12); Aspartate Amino Transferase 26 U/L (17-59); Bilirubin,Total 0.6 mg/dL (0.2-1.3); Blood Urea Nitrogen 18 mg/dL (9-20); Calcium 8.8 mg/dL (8.4-10.2); Carbon Dioxide 22 mmol/L (22-30); Chloride 108 mmol/L (98-107); Estimated Glomerular Filt Rate > 60; Glucose 100 mg/dL (65-110); Lipase 116 U/L (23-300); Potassium 4.5 mmol/L (3.4-5.0); Sodium 137 mmol/L (137-145)
[2024-12-29 03:45] LABS: Troponin I < 0.012 ng/mL (0.000-0.034)
[2024-12-29 04:29] LABS: Add Urine Microscopic? NO; Appearance Urine Clear (Clear); Bilirubin Urine Negative (Negative); Blood Urine Negative (Negative); Color Urine Yellow (Yellow); Glucose Urine UA Negative (Negative); Ketones Urine Negative (Negative); Leukocyte Esterase Ur Negative LEU/UL (Negative); Nitrate Urine Negative (Negative); Protein Urine Negative (Negative); Specific Grav Ur 1.015 (1.001-1.035); Urobilinogen Urine 0.2 mg/dL (<2.0); pH Urine 5.5 (5.0-9.0)
--- NOTE | 2024-12-29 05:39 | ED.GENADULT ---
HPI - General Adult General Chief complaint: Unspecified Stated complaint: Right side pain, pinch in my shouler Time Seen by Provider: 12/29/24 02:58 History of Present Illness HPI narrative: Patient is a 34-year-old gentleman presents emergency department with chief complaint of chest and abdominal pain. Patient reports that he started having pain on the right side of his chest after he has been coughing patient states the pain hurts to deep breathe reports that the pain is worse with movement and improved with rest patient also reports there is pain in the right upper quadrant and right side of his abdomen. Related Data Allergies Allergy/AdvReac Type Severity Reaction Status Date / Time No Known Allergies Allergy Verified 06/23/23 07:51 Review of Systems Review of Systems: A 10 system review of systems was completed on the patient and is negative except for what is stated in the HPI. Nursing and ancillary documentation was reviewed. [facility] Past Medical History Medical History No significant past medical history Surgical History Surgical History No significant past surgical history Social History Social History Smoking status: Never smoker Alcohol intake: current Substance use: current Substance use type: marijuana Exam Narrative: GENERAL: Well-appearing, well-nourished, and in moderate acute pain distress. HEAD: Normocephalic, atraumatic. EYES: PERRLA and EOMI. ENT: Nares clear, no rhinorrhea or epistaxis. Mucous membranes moist. NECK: Supple. CHEST: Clear to auscultation. No respiratory distress. HEART: Regular rate and rhythm. No murmur heard. Normal peripheral pulses. ABDOMEN: Soft, nontender, nondistended, normal active bowel sounds. EXTREMITIES: Normal range of motion. No edema. SKIN: Warm, dry, no rash. NEURO: No focal deficits. Alert and oriented x3. PSYCH: Normal mood and affect. Course Vital Signs Vital signs: Vital Signs Pulse Rate 53 L 12/29/24 05:40 Respiratory Rate 19 12/29/24 05:40 Blood Pressure 106/70 12/29/24 05:40 Pulse Oximetry 97 12/29/24 05:40 Pulse Rate 53 L 12/29/24 05:40 Respiratory Rate 19 12/29/24 05:40 Blood Pressure 106/70 12/29/24 05:40 Pulse Oximetry 97 12/29/24 05:40 Medical Decision Making MDM Narrative Medical decision making narrative: Diagnosis includes pneumothorax, pulmonary embolism, aortic dissection aneurysm, intra-abdominal infection, cholecystitis, pancreatitis Laboratory studies were obtained on the patient which were within normal limits lipase was normal troponin was negative lactic acid was normal CBC showed a White count of 13.0 CTA chest with abdomen pelvis showed no evidence of pulmonary embolism no evidence of intra-abdominal infection Vital Signs Vital Signs: Vital Signs Pulse Rate 53 L 12/29/24 05:40 Respiratory Rate 19 12/29/24 05:40 Blood Pressure 106/70 12/29/24 05:40 Pulse Oximetry 97 12/29/24 05:40 Pulse Rate 53 L 12/29/24 05:40 Respiratory Rate 19 12/29/24 05:40 Blood Pressure 106/70 12/29/24 05:40 Pulse Oximetry 97 12/29/24 05:40 Lab Data 12/29/24 02:45 12/29/24 03:16 Labs: Lab Results 12/29/24 12/29/24 12/29/24 Range/Units 02:45 03:10 03:16 WBC 13.0 H (4.5-10.0) K/mm3 RBC 4.74 (4.6-6.20) M/mm3 Hgb 15.2 (14.0-18.0) g/dL Hct 44.9 (42.0-52.0) % MCV 94.7 (80-100) fl MCH 32.1 (26-34) pg MCHC 33.9 (32-36) g/dl RDW 13.2 (11.5-14.5) % Plt Count 222 (150-375) k/mm3 MPV 10.4 (7.4-10.4) fl Immature Gran % (Auto) 0.4 (0-0.5) % Neut % (Auto) 48.4 (45.5-73.1) % Lymph % (Auto) 36.7 (18.3-44.2) % [place] % (Auto) 8.9 H (2.6-8.5) % Eos % (Auto) 4.8 H (0-4.4) % Baso % (Auto) 0.8 (0.2-1.2) % Lymph # (Auto) 4.75 H (0.9-3.2) K/mm3 [place] # (Auto) 1.2 H (0.1-0.6) K/mm3 Eos # (Auto) 0.6 H (0-0.3) K/mm3 Baso # (Auto) 0.1 (0.0-0.1) K/mm3 Abs Immat Gran (auto) 0.05 H (0.00-0.031) K/mm3 Absolute Neuts (auto) 6.3 (1.3-6.7) K/mm3 Absolute Nucleated RBC 0.000 (0.0-0.012) K/mm3 Nucleated RBC % 0.0 (0.0-0.2) % Sodium Cancelled Potassium Chloride Carbon Dioxide Anion Gap BUN Creatinine Estim Creat Clear Calc Estimated GFR Glucose Lactic Acid 1.3 (0.7-2.0) mmol/L Calcium Total Bilirubin AST ALT Alkaline Phosphatase Troponin I (0.000-0.034) ng/mL Total Protein Albumin Lipase (23-300) U/L Urine Color (Yellow) Urine Appearance (Clear) Urine pH (5.0-9.0) Ur Specific [place] (1.001-1.035) Urine Protein (Negative) mg/dL Urine Glucose (UA) (Negative) mg/dL Urine Ketones (Negative) mg/dL Ur Blood (Man) (Negative) Urine Nitrate (Negative) Urine Bilirubin (Negative) Urine Urobilinogen (<2.0) mg/dL Leukocyte Esterase Rfl (Negative) ROSALIE/UL 12/29/24 12/29/24 12/29/24 Range/Units 03:16 03:16 03:16 WBC (4.5-10.0) K/mm3 RBC (4.6-6.20) M/mm3 Hgb (14.0-18.0) g/dL Hct (42.0-52.0) % MCV (80-100) fl MCH (26-34) pg MCHC (32-36) g/dl RDW (11.5-14.5) % Plt Count (150-375) k/mm3 MPV (7.4-10.4) fl Immature Gran % (Auto) (0-0.5) % Neut % (Auto) (45.5-73.1) % Lymph % (Auto) (18.3-44.2) % [place] % (Auto) (2.6-8.5) % Eos % (Auto) (0-4.4) % Baso % (Auto) (0.2-1.2) % Lymph # (Auto) (0.9-3.2) K/mm3 [place] # (Auto) (0.1-0.6) K/mm3 Eos # (Auto) (0-0.3) K/mm3 Baso # (Auto) (0.0-0.1) K/mm3 Abs Immat Gran (auto) (0.00-0.031) K/mm3 Absolute Neuts (auto) (1.3-6.7) K/mm3 Absolute Nucleated RBC (0.0-0.012) K/mm3 Nucleated RBC % (0.0-0.2) % Sodium 137 Potassium Cancelled 4.5 Chloride Cancelled 108 H Carbon Dioxide Cancelled Anion Gap BUN Creatinine Estim Creat Clear Calc Estimated GFR Glucose Lactic Acid (0.7-2.0) mmol/L Calcium Total Bilirubin AST ALT Alkaline Phosphatase Troponin I (0.000-0.034) ng/mL Total Protein Albumin Lipase (23-300) U/L Urine Color (Yellow) Urine Appearance (Clear) Urine pH (5.0-9.0) Ur Specific [place] (1.001-1.035) Urine Protein (Negative) mg/dL Urine Glucose (UA) (Negative) mg/dL Urine Ketones (Negative) mg/dL Ur Blood (Man) (Negative) Urine Nitrate (Negative) Urine Bilirubin (Negative) Urine Urobilinogen (<2.0) mg/dL Leukocyte Esterase Rfl (Negative) ROSALIE/UL 12/29/24 12/29/24 12/29/24 Range/Units 03:16 03:16 03:16 WBC (4.5-10.0) K/mm3 RBC (4.6-6.20) M/mm3 Hgb (14.0-18.0) g/dL Hct (42.0-52.0) % MCV (80-100) fl MCH (26-34) pg MCHC (32-36) g/dl RDW (11.5-14.5) % Plt Count (150-375) k/mm3 MPV (7.4-10.4) fl Immature Gran % (Auto) (0-0.5) % Neut % (Auto) (45.5-73.1) % Lymph % (Auto) (18.3-44.2) % [place] % (Auto) (2.6-8.5) % Eos % (Auto) (0-4.4) % Baso % (Auto) (0.2-1.2) % Lymph # (Auto) (0.9-3.2) K/mm3 [place] # (Auto) (0.1-0.6) K/mm3 Eos # (Auto) (0-0.3) K/mm3 Baso # (Auto) (0.0-0.1) K/mm3 Abs Immat Gran (auto) (0.00-0.031) K/mm3 Absolute Neuts (auto) (1.3-6.7) K/mm3 Absolute Nucleated RBC (0.0-0.012) K/mm3 Nucleated RBC % (0.0-0.2) % Sodium Potassium Chloride Carbon Dioxide 22 Anion Gap Cancelled 7 BUN Cancelled 18 Creatinine Cancelled Estim Creat Clear Calc Estimated GFR Glucose Lactic Acid (0.7-2.0) mmol/L Calcium Total Bilirubin AST ALT Alkaline Phosphatase Troponin I (0.000-0.034) ng/mL Total Protein Albumin Lipase (23-300) U/L Urine Color (Yellow) Urine Appearance (Clear) Urine pH (5.0-9.0) Ur Specific [place] (1.001-1.035) Urine Protein (Negative) mg/dL Urine Glucose (UA) (Negative) mg/dL Urine Ketones (Negative) mg/dL Ur Blood (Man) (Negative) Urine Nitrate (Negative) Urine Bilirubin (Negative) Urine Urobilinogen (<2.0) mg/dL Leukocyte Esterase Rfl (Negative) ROSALIE/UL 12/29/24 12/29/24 12/29/24 Range/Units 03:16 03:16 03:16 WBC (4.5-10.0) K/mm3 RBC (4.6-6.20) M/mm3 Hgb (14.0-18.0) g/dL Hct (42.0-52.0) % MCV (80-100) fl MCH (26-34) pg MCHC (32-36) g/dl RDW (11.5-14.5) % Plt Count (150-375) k/mm3 MPV (7.4-10.4) fl Immature Gran % (Auto) (0-0.5) % Neut % (Auto) (45.5-73.1) % Lymph % (Auto) (18.3-44.2) % [place] % (Auto) (2.6-8.5) % Eos % (Auto) (0-4.4) % Baso % (Auto) (0.2-1.2) % Lymph # (Auto) (0.9-3.2) K/mm3 [place] # (Auto) (0.1-0.6) K/mm3 Eos # (Auto) (0-0.3) K/mm3 Baso # (Auto) (0.0-0.1) K/mm3 Abs Immat Gran (auto) (0.00-0.031) K/mm3 Absolute Neuts (auto) (1.3-6.7) K/mm3 Absolute Nucleated RBC (0.0-0.012) K/mm3 Nucleated RBC % (0.0-0.2) % Sodium Potassium Chloride Carbon Dioxide Anion Gap BUN Creatinine 0.93 Estim Creat Clear Calc Cancelled Not Reportable Estimated GFR Cancelled > 60 Glucose Cancelled Lactic Acid (0.7-2.0) mmol/L Calcium Total Bilirubin AST ALT Alkaline Phosphatase Troponin I (0.000-0.034) ng/mL Total Protein Albumin Lipase (23-300) U/L Urine Color (Yellow) Urine Appearance (Clear) Urine pH (5.0-9.0) Ur Specific [place] (1.001-1.035) Urine Protein (Negative) mg/dL Urine Glucose (UA) (Negative) mg/dL Urine Ketones (Negative) mg/dL Ur Blood (Man) (Negative) Urine Nitrate (Negative) Urine Bilirubin (Negative) Urine Urobilinogen (<2.0) mg/dL Leukocyte Esterase Rfl (Negative) ROSALIE/UL 12/29/24 12/29/24 12/29/24 Range/Units 03:16 03:16 03:16 WBC (4.5-10.0) K/mm3 RBC (4.6-6.20) M/mm3 Hgb (14.0-18.0) g/dL Hct (42.0-52.0) % MCV (80-100) fl MCH (26-34) pg MCHC (32-36) g/dl RDW (11.5-14.5) % Plt Count (150-375) k/mm3 MPV (7.4-10.4) fl Immature Gran % (Auto) (0-0.5) % Neut % (Auto) (45.5-73.1) % Lymph % (Auto) (18.3-44.2) % [place] % (Auto) (2.6-8.5) % Eos % (Auto) (0-4.4) % Baso % (Auto) (0.2-1.2) % Lymph # (Auto) (0.9-3.2) K/mm3 [place] # (Auto) (0.1-0.6) K/mm3 Eos # (Auto) (0-0.3) K/mm3 Baso # (Auto) (0.0-0.1) K/mm3 Abs Immat Gran (auto) (0.00-0.031) K/mm3 Absolute Neuts (auto) (1.3-6.7) K/mm3 Absolute Nucleated RBC (0.0-0.012) K/mm3 Nucleated RBC % (0.0-0.2) % Sodium Potassium Chloride Carbon Dioxide Anion Gap BUN Creatinine Estim Creat Clear Calc Estimated GFR Glucose 100 Lactic Acid (0.7-2.0) mmol/L Calcium Cancelled 8.8 Total Bilirubin Cancelled 0.6 AST Cancelled ALT Alkaline Phosphatase Troponin I (0.000-0.034) ng/mL Total Protein Albumin Lipase (23-300) U/L Urine Color (Yellow) Urine Appearance (Clear) Urine pH (5.0-9.0) Ur Specific [place] (1.001-1.035) Urine Protein (Negative) mg/dL Urine Glucose (UA) (Negative) mg/dL Urine Ketones (Negative) mg/dL Ur Blood (Man) (Negative) Urine Nitrate (Negative) Urine Bilirubin (Negative) Urine Urobilinogen (<2.0) mg/dL Leukocyte Esterase Rfl (Negative) ROSALIE/UL 0212/29/24 12/29/24 Range/Units 03:16 03:16 03:16 WBC (4.5-10.0) K/mm3 RBC (4.6-6.20) M/mm3 Hgb (14.0-18.0) g/dL Hct (42.0-52.0) % MCV (80-100) fl MCH (26-34) pg MCHC (32-36) g/dl RDW (11.5-14.5) % Plt Count (150-375) k/mm3 MPV (7.4-10.4) fl Immature Gran % (Auto) (0-0.5) % Neut % (Auto) (45.5-73.1) % Lymph % (Auto) (18.3-44.2) % [place] % (Auto) (2.6-8.5) % Eos % (Auto) (0-4.4) % Baso % (Auto) (0.2-1.2) % Lymph # (Auto) (0.9-3.2) K/mm3 [place] # (Auto) (0.1-0.6) K/mm3 Eos # (Auto) (0-0.3) K/mm3 Baso # (Auto) (0.0-0.1) K/mm3 Abs Immat Gran (auto) (0.00-0.031) K/mm3 Absolute Neuts (auto) (1.3-6.7) K/mm3 Absolute Nucleated RBC (0.0-0.012) K/mm3 Nucleated RBC % (0.0-0.2) % Sodium Potassium Chloride Carbon Dioxide Anion Gap BUN Creatinine Estim Creat Clear Calc Estimated GFR Glucose Lactic Acid (0.7-2.0) mmol/L Calcium Total Bilirubin AST 26 ALT Cancelled 23 Alkaline Phosphatase Cancelled 47 Troponin I < 0.012 (0.000-0.034) ng/mL Total Protein Cancelled Albumin Lipase (23-300) U/L Urine Color (Yellow) Urine Appearance (Clear) Urine pH (5.0-9.0) Ur Specific [place] (1.001-1.035) Urine Protein (Negative) mg/dL Urine Glucose (UA) (Negative) mg/dL Urine Ketones (Negative) mg/dL Ur Blood (Man) (Negative) Urine Nitrate (Negative) Urine Bilirubin (Negative) Urine Urobilinogen (<2.0) mg/dL Leukocyte Esterase Rfl (Negative) ROSALIE/UL 12/29/24 12/29/24 12/29/24 Range/Units 03:16 03:16 04:24 WBC (4.5-10.0) K/mm3 RBC (4.6-6.20) M/mm3 Hgb (14.0-18.0) g/dL Hct (42.0-52.0) % MCV (80-100) fl MCH (26-34) pg MCHC (32-36) g/dl RDW (11.5-14.5) % Plt Count (150-375) k/mm3 MPV (7.4-10.4) fl Immature Gran % (Auto) (0-0.5) % Neut % (Auto) (45.5-73.1) % Lymph % (Auto) (18.3-44.2) % [place] % (Auto) (2.6-8.5) % Eos % (Auto) (0-4.4) % Baso % (Auto) (0.2-1.2) % Lymph # (Auto) (0.9-3.2) K/mm3 [place] # (Auto) (0.1-0.6) K/mm3 Eos # (Auto) (0-0.3) K/mm3 Baso # (Auto) (0.0-0.1) K/mm3 Abs Immat Gran (auto) (0.00-0.031) K/mm3 Absolute Neuts (auto) (1.3-6.7) K/mm3 Absolute Nucleated RBC (0.0-0.012) K/mm3 Nucleated RBC % (0.0-0.2) % Sodium Potassium Chloride Carbon Dioxide Anion Gap BUN Creatinine Estim Creat Clear Calc Estimated GFR Glucose Lactic Acid (0.7-2.0) mmol/L Calcium Total Bilirubin AST ALT Alkaline Phosphatase Troponin I (0.000-0.034) ng/mL Total Protein 7.0 Albumin Cancelled 3.8 Lipase 116 (23-300) U/L Urine Color Yellow (Yellow) Urine Appearance Clear (Clear) Urine pH 5.5 (5.0-9.0) Ur Specific [place] 1.015 (1.001-1.035) Urine Protein Negative (Negative) mg/dL Urine Glucose (UA) Negative (Negative) mg/dL Urine Ketones Negative (Negative) mg/dL Ur Blood (Man) Negative (Negative) Urine Nitrate Negative (Negative) Urine Bilirubin Negative (Negative) Urine Urobilinogen 0.2 (<2.0) mg/dL Leukocyte Esterase Rfl Negative (Negative) ROSALIE/UL Discharge Plan Discharge Clinical Impression: Chest pain, pleuritic Patient Disposition: Home, Self-Care Condition: Stable Instructions: Antibiotic Form, Pleurisy (ED) Patient Language: Yi Prescriptions: New diclofenac potassium 50 mg tablet 50 mg PO TID PRN (Reason: pain) Qty: 30 0RF No Action lidocaine 5 % adhesive patch,medicated 1 patch topical DAILY Qty: 30 0RF Rx Instructions: leave on most painful area for up to 12 hrs cyclobenzaprine 10 mg tablet 10 mg PO HS PRN (Reason: muscle spasm) Qty: 10 0RF Follow-up/Referrals: Haroon Landon MD [Primary Care Provider] - Time of Disposition: 05:56
[2024-12-29 05:40] VITALS: BP 106/70; PULSE 53; RESP 19; O2SAT 97
[2024-12-29 05:56] VITALS: TEMP 36.5
[2024-12-29] MEDS: KETOROLAC 30 MG/ML VIAL (*BKC) IV PUSH (06:01)
[2024-12-29 06:15] VITALS: BP 120/76; PULSE 88; RESP 15; O2SAT 98
== END 2024-12-29 06:16 | disposition home or self-care (01) ==
PROVIDERS: Emergency Provider Emergency Medicine; PCP Family Medicine
DX: R07.81 Pleurodynia (principal)
CPT/HCPCS: 36415; 71045; 71275; 74177; 80053; 81003; 83605; 83690; 84484; 85025; 93005; 96374; 96375; 99284; J1885; J2270; Q9967

== ENCOUNTER 2025-02-06 22:24 | Emergency (ER) | payer BC, SELFPAY ==
--- OUTSIDE RECORDS SUMMARY | 2025-02-06 22:26 | XMS_ITS | Clinical Summary ---
Author Organization [facility] Address [address] [place] [address] Care Team Providers Care Industrial Chemicals Supervisor Name Role Phone Haroon Landon MD Primary Care Provider [phone] Geovanna Blum MD Unavailable [phone] Allergies Active Allergy Reactions Criticality Noted Date Comments No Known Allergies Other (See comments) Low Reaction: Medications SUMAtriptan (IMITREX) 50 mg tabletIndicatio ns:Migraine 0 05/09/2018 Active fluticasone (FLONASE) 50 mcg/actuation nasal spray SPRAY 2 SPRAYS IN EACH NOSTRIL EVERY DAY 06/26/2017 Active Active Problems No known active problems Encounters Date Type Department Care Team Description 11/13/2024 1:00 PM FURNITURE TECHNICIAN Clinical Support [facility] Reproductive Endocrinology Lab [address] [place] [id number] Encounter for fertility testing (Primary Dx) 11/13/2024 7:02 AM FURNITURE TECHNICIAN - 11/13/2024 11:59 PM FURNITURE TECHNICIAN Hospital Encounter [facility] [address], [address] [place] [address] Discharge Disposition: Discharge to home or self care from Last 3 Months Surgical History Surgery Date Site/Laterality Comments [place] RHINOPLASTY PRIMARY W/TERA OR SEPTAL REPAIR Complete Rhinoplasty (With Major Septal Repair) - (Added by ANNALISA Conv) [place] FRACTURE NASAL INFERIOR TURBINATE THERAPEUTIC Therapeutic Fracture [...] on file Legal Sex Male 6:50 PM FURNITURE TECHNICIAN Gender Identity Male 06/01/2018 12:33 PM CDT Sexual Orientation Not on file Obstetrics History Last Filed Vital Signs Vital Sign Reading Time Taken Comments Blood Pressure 146/87 07/13/2018 1:52 PM CDT Pulse 57 07/13/2018 1:52 PM CDT Temperature 36.4 C (97.5 F) 05/11/2018 7:43 PM CDT Respiratory Rate 18 05/11/2018 9:56 PM CDT Oxygen Saturation 98% 05/11/2018 7:43 PM CDT Inhaled Oxygen Concentration - - Weight 90.7 kg (200 lb) 05/11/2018 7:43 PM CDT Height 177.8 cm (5' 10 ) 05/11/2018 7:43 PM CDT Body Mass Index 28.7 05/11/2018 7:43 PM CDT Plan of Treatment Health Maintenance Due Date Last Done Comments Depression Screening 1990 Hepatitis C Screening 1990 DTaP/Tdap/Td Vaccine (1 - Tdap) 2001 Varicella Vaccines (1 of 2 - 13+ 2-dose series) 2003 Hepatitis B Screening 2008 Regular Well Visit/Exam 18-64 2008 Pneumococcal vaccine <65 (1 of 2 - PCV) 2009 Covid-19 Vaccine (2 - 2023-2 5 season) 2024 11/15/2021 Influenza Vaccine (#1) 2024 HPV Vaccines Aged Out No longer eligi ble based on patient's age to complete this topic Procedures Procedure Name Priority Date/Time Associated Diagnosis Comments POCT SEMEN Routine 11/13/2024 1:31 PM FURNITURE TECHNICIAN Encounter for fertility testing from Last 3 Months Results * POCT semen (11/13/2024 1:31 PM FURNITURE TECHNICIAN) Volume, Semen POC 4.7 >=1.4 ML Viscosity, [...] Analysis Comment:YANI DONALDSON Semen 11/13/2024 1:31 PM FURNITURE TECHNICIAN Seema Pete, BS - 11/13/2024 2:34 PM RAYMUNDO Veras Mary Veras MD POINT OF CARE TEST O RDERABLES Final Result from Last 3 Months Insurance [facility] [employer] [employer] Care Teams Industrial Chemicals Supervisor Relationship Specialty Start Date End Date Haroon Landon MD [address] [address] PCP - General Family Medicine 10/04/24 Geovanna Blum MD [address] [facility] [address] [address] Pediatrics 10/04/24
--- OUTSIDE RECORDS SUMMARY | 2025-02-06 22:26 | XMS_ITS | Referral Summary ---
Author Organization [facility] Address [address] [place] [address] Care Team Providers Care Plastics Engineering Teacher Name Role Phone Haroon Landon MD Primary Care Provider [phone] Geovanna Blum MD Unavailable [phone] Encounters Date Type Department Care Team Description 11/13/2024 1:00 PM MACHINE ROUGH ROUNDER Clinical Support [facility] Reproductive Endocrinology Lab [address] [id number] Encounter for fertility testing (Primary Dx) 11/13/2024 7:02 AM MACHINE ROUGH ROUNDER - 11/13/2024 11:59 PM MACHINE ROUGH ROUNDER Hospital Encounter [facility] [address] [address] Discharge Disposition: Discharge to home [...] on file Legal Sex Male 6:50 PM MACHINE ROUGH ROUNDER Gender Identity Male 06/01/2018 12:33 PM CDT [...] Comments POCT SEMEN Routine 11/13/2024 1:31 PM MACHINE ROUGH ROUNDER Encounter for fertility testing from Last 3 Months Results * POCT semen (11/13/2024 1:31 PM MACHINE ROUGH ROUNDER) Volume, Semen POC 4.7 >=1.4 ML Viscosity, [...] Analysis Comment:YANI DONALDSON Semen 11/13/2024 1:31 PM MACHINE ROUGH ROUNDER Seema Pete BS - 11/13/2024 2:34 PM MACHINE ROUGH ROUNDER Rito Mary Vreas MD POINT OF CARE TEST O RDERABLES Final Result from Last 3 Months Insurance [employer] Care Teams Plastics Engineering Teacher Relationship Specialty Start Date End Date Haroon Landon MD [address] [address] PCP - General Family Medicine 10/04/24 Geovanna Blum MD [address] [place] [id number] Pediatrics 10/04/24
--- OUTSIDE RECORDS SUMMARY | 2025-02-06 22:26 | XMS_ITS | Encounter Summary ---
Author Organization [facility] Address [address] [place] [address] Care Team Providers Care Wrapper Stitcher Name Role Phone Unavailable Primary Care Provider Unavailabl e Encounter Details Date Type Department Care Team (Late st Contact Info) Description 02/04/2025 External Device Data [place] ABSTRACTION Provider, Abstract NO ADDRESS ON FILE Social History Tobacco Use Types Packs/Day Years Used Date Smoking Tobacco: Unknown Feeling Safe Answer Date Recorded Are you in a relationship wi th someone who hurts you emotionally and/or physically? No 12/27/2024 Sex and Gender Information Value Date Recorded Sex Assigned at Not on file Legal Sex Male 8:46 AM INFECTION CONTROL MANAGER Gender Identity Not on file Sexual Orientation Not on file documented as of this encounter Plan of Treatment Not on file documented as of this encounter Visit Diagnoses Not on filedocumented in this encounter
--- OUTSIDE RECORDS SUMMARY | 2025-02-06 22:26 | XMS_ITS | Encounter Summary ---
Author Organization [facility] Address 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
--- OUTSIDE RECORDS SUMMARY | 2025-02-06 22:26 | XMS_ITS | Clinical Summary ---
Author Organization Formerly [facility] Address [address] [place] [address] Phone Care Team Providers Care Eating Disorder Specialist Name Role Phone Unavailable Primary Care Provider [...] Encounters Date Type Department Care Team Description 02/04/2025 External Device Data STL ABSTRACTION Provider, Abstract 02/04/2025 External Device Data STL ABSTRACTION Provider, Abstract 01/28/2025 External Device Data STL ABSTRACTION Provider, Abstract 01/21/2025 External Device Data STL ABSTRACTION Provider, Abstract 01/21/2025 External Device Data STL ABSTRACTION Provider, Abstract 12/31/2024 External Device Data STL ABSTRACTION Provider, Abstract 12/31/2024 External Device Data STL ABSTRACTION Provider, Abstract 12/31/2024 External Device Data STL ABSTRACTION Provider, Abstract 12/27/2024 9:29 AM SOUND SYSTEM INSTALLER - 12/27/2024 1:03 PM SOUND SYSTEM INSTALLER Emergency [facility] Emergency Department [address] [place] [address] Intercostal muscle strain, initial encounter [...] on file Legal Sex Male 8:46 AM SOUND SYSTEM INSTALLER Gender Identity Not on file Sexual Orientation Not on file Last Filed Vital Signs Vital Sign Reading Time Taken Comments Blood Pressure 115/67 12/27/2024 12:33 PM SOUND SYSTEM INSTALLER Pulse 56 12/27/2024 12:33 PM SOUND SYSTEM INSTALLER Temperature 36.7 C (98.1 F) 12/27/2024 8:50 AM SOUND SYSTEM INSTALLER Respiratory Rate 19 12/27/2024 8:50 AM SOUND SYSTEM INSTALLER Oxygen Saturation 98% 12/27/2024 12:33 PM SOUND SYSTEM INSTALLER Inhaled Oxygen Concentration - - Weight 104.3 kg (230 lb) 12/27/2024 8:50 AM SOUND SYSTEM INSTALLER Height 177.8 cm (5' 10 ) 12/27/2024 8:50 AM SOUND SYSTEM INSTALLER Body Mass Index 33 12/27/2024 8:50 AM SOUND SYSTEM INSTALLER Plan of Treatment Health Maintenance Due Date [...] W PA CHEST Stat 12/27/2024 10:27 AM SOUND SYSTEM INSTALLER COMPREHENSIVE METABOLIC PANEL Stat 12/27/2024 8:58 AM SOUND SYSTEM INSTALLER CBC WITH DIFFERENTIAL Stat 12/27/2024 8:58 AM SOUND SYSTEM INSTALLER from Last 3 Months Results * XR RIBS UNILATERAL RIGHT W PA CHEST (12/27/2024 10:27 AM SOUND SYSTEM INSTALLER) Anatomical Region Laterality Modality Chest Computed Radiogr aphy 12/27/2024 10:2 7 AM SOUND SYSTEM INSTALLER Impressions 12/27/2024 10:32 AM SOUND SYSTEM INSTALLER IMPRESSION: 1. No acute pulmonary disease. 2. No rib fracture. DICTATION LOCATION: Location 7 [facility] 12/27/2024 10:32 AM SOUND SYSTEM INSTALLER XR RIBS UNILATERAL RIGHT W PA CHEST [...] rib fracture. DICTATION LOCATION: Location 7 - [facility] Ankit HOGUE DIAGNOSTIC IMAGING ORDERABL ES Final Result * (ABNORMAL) CBC WITH DIFFERENTIAL (12/27/2024 8:58 AM SOUND SYSTEM INSTALLER) WBC 10.0(H) 4.0 - 9.8 K/uL 12/27/2024 9:10 AM [facility] [employer] [facility] RBC 4.94 4.50 - 5.40 M/uL 12/27/2024 9:10 AM [facility] HEMOGLOBIN 15.7 13.6 - 16.5 g/dL 12/27/2024 9:10 AM [facility] HEMATOCRIT 46.1 40.0 - 48.0 % 12/27/2024 9:10 AM [facility] MCV 93.3 82.0 - 99.0 fL 12/27/2024 9:10 AM [facility] MCH 31.8 27.2 - 32.6 pg 12/27/2024 9:10 AM [facility] MCHC 34.1 31.5 - 35.5 g/dL 12/27/2024 9:10 AM [facility] RDW 13.2 11.5 - 14.5 % 12/27/2024 9:10 AM [facility] RDW-STDEV 45.0 37.1 - 48.7 fL 12/27/2024 9:10 AM [facility] [employer] [facility] PLATELETS 248 140 - 350 K/uL 12/27/2024 9:10 AM [facility] MPV 10.1 9.3 - 12.4 fL 12/27/2024 9:10 AM [facility] NEUTROPHILS 44 % 12/27/2024 9:10 AM [facility] LYMPHOCYTES 40 % 12/27/2024 9:10 AM [facility] MONOCYTES 11 % 12/27/2024 9:10 AM [facility] EOSINOPHILS 4 % 12/27/2024 9:10 AM [facility] BASOPHILS 1 % 12/27/2024 9:10 AM [facility] IMMATURE GRANULOCYTES 1 % 12/27/2024 9:10 AM [facility] Comment:IG (Immature Granulo cyte) count includes Metamyelocytes, Myelocytes, and Promyelocytes NEUTROPHIL ABSOLUTE 4.41 1.90 - 7.00 K/uL 12/27/2024 9:10 AM [facility] LYMPHOCYTE ABSOLUTE 3.97 0.70 - 4.50 K/uL 12/27/2024 9:10 AM [facility] MONOCYTE ABSOLUTE 1.05 0.10 - 1.30 K/uL 12/27/2024 9:10 AM [facility] EOSINOPHIL ABSOLUTE 0.35 0.00 - 0.70 K/uL 12/27/2024 9:10 AM [facility] BASOPHILS ABSOLUTE 0.11 0.00 - 0.20 K/uL 12/27/2024 9:10 AM [facility] IMMATURE GRANULOCYTES ABSOLUTE 0.08(H) 0.00 - 0.03 K/uL 12/27/2024 9:10 AM [facility] Blood Venipuncture / Unknown 12/27/2024 8:58 AM SOUND SYSTEM INSTALLER 12/27/2024 9:03 AM SOUND SYSTEM INSTALLER us Protocol [facility] Emergency MD HEMATOLOGY ORDERABLES Final Result [facility] CLIA# [id number] [place] [address] * (ABNORMAL) COMPREHENSIVE METABOLIC PANEL (12/27/2024 8:58 AM SOUND SYSTEM INSTALLER) [facility] SODIUM 139 136 - 145 mmol/L 12/27/2024 9:35 AM [facility] [employer] [facility] POTASSIUM 4.3 3.4 - 5.1 mmol/L 12/27/2024 9:35 AM [facility] LABORATORY [facility] CHLORIDE 105 98 - 107 mmol/L 12/27/2024 9:35 AM [facility] [employer] [facility] CO2 24 22 - 29 mmol/L 12/27/2024 9:35 AM [facility] [employer] [facility] CALCIUM 9.9 8.6 - 10.4 mg/dL 12/27/2024 9:35 AM [facility] [employer] [facility] BUN 21(H) 6 - 20 mg/dL 12/27/2024 9:35 AM [facility] [employer] [facility] CREATININE 1.09 0.67 - 1.17 mg/dL 12/27/2024 9:35 AM [facility] [employer] [facility] GLUCOSE 116(H) 74 - 99 mg/dL 12/27/2024 9:35 AM [facility] TOTAL PROTEIN 6.9 6.3 - 8.7 g/dL 12/27/2024 9:35 AM [facility] [employer] [facility] ALBUMIN 4.2 3.5 - 5.2 g/dL 12/27/2024 9:35 AM [facility] [employer] [facility] BILIRUBIN TOTAL 0.3 0.3 - 1.2 mg/dL 12/27/2024 9:35 AM [facility] [employer] [facility] ALKALINE PHOSPHATASE 49 40 - 150 U/L 12/27/2024 9:35 AM [facility] [employer] [facility] AST 20 0 - 41 U/L 12/27/2024 9:35 AM [facility] [employer] [facility] ALT 25 0 - 41 U/L 12/27/2024 9:35 AM [facility] LABORATORY [facility] GFR >60 >=60 mL/min/1.7 3 sq meter 12/27/2024 9:35 AM SOUND SYSTEM INSTALLER [facility] LABORATORY SERVICES [facility] Comment:eGFR calculated with 2020 CKD-EPI equation. Vegetarian diet, extremely high or low muscle mass, and may affect results. Cystatin C with Glomerular Filtration Rate is a suitable alternative for these patients. ANION GAP 10 8 - 16 mmol/L 12/27/2024 9:35 AM SOUND SYSTEM INSTALLER [facility] LABOR[facility] Blood Venipuncture / Unknown 12/27/2024 8:58 AM SOUND SYSTEM INSTALLER 12/27/2024 9:07 AM SOUND SYSTEM INSTALLER us Protocol [facility] Emergency MD CHEMISTRY ORDERABLES Final Result [facility] LABORATORY [facility] CLIA# [id number] [place] [address] from Last 3 Months Insurance MYKEL MARTINEZ [id number]
[2025-02-06 22:28] VITALS: BP 112/71; PULSE 59; RESP 18; TEMP 36.6; O2SAT 100
--- NOTE | 2025-02-07 00:24 | PC.NURSE ---
Pt's name called to go back to room and no answer.
--- OUTSIDE RECORDS SUMMARY | 2025-02-07 01:00 | XMS_ITS | Clinical Summary ---
Author Organization [facility] Address [address] [place] [address] Phone Care Team Providers Care Inspector Final Assembly Conveyor Line Name Role Phone Unavailable Primary Care Provider [...] STL ABSTRACTION Provider, Abstract 12/27/2024 9:29 AM SECURITY OPERATIONS ANALYST - 12/27/2024 1:03 PM SECURITY OPERATIONS ANALYST Emergency [facility] Emergency Department [address] [place] [address] Intercostal muscle strain, initial encounter [...] on file Legal Sex Male 8:46 AM SECURITY OPERATIONS ANALYST Gender Identity Not on file Sexual Orientation Not on file Last Filed Vital Signs Vital Sign Reading Time Taken Comments Blood Pressure 115/67 12/27/2024 12:33 PM SECURITY OPERATIONS ANALYST Pulse 56 12/27/2024 12:33 PM SECURITY OPERATIONS ANALYST Temperature 36.7 C (98.1 F) 12/27/2024 8:50 AM SECURITY OPERATIONS ANALYST Respiratory Rate 19 12/27/2024 8:50 AM SECURITY OPERATIONS ANALYST Oxygen Saturation 98% 12/27/2024 12:33 PM SECURITY OPERATIONS ANALYST Inhaled Oxygen Concentration - - Weight 104.3 kg (230 lb) 12/27/2024 8:50 AM SECURITY OPERATIONS ANALYST Height 177.8 cm (5' 10 ) 12/27/2024 8:50 AM SECURITY OPERATIONS ANALYST Body Mass Index 33 12/27/2024 8:50 AM SECURITY OPERATIONS ANALYST Plan of Treatment Health Maintenance Due Date [...] W PA CHEST Stat 12/27/2024 10:27 AM SECURITY OPERATIONS ANALYST COMPREHENSIVE METABOLIC PANEL Stat 12/27/2024 8:58 AM SECURITY OPERATIONS ANALYST CBC WITH DIFFERENTIAL Stat 12/27/2024 8:58 AM SECURITY OPERATIONS ANALYST from Last 3 Months Results * XR RIBS UNILATERAL RIGHT W PA CHEST (12/27/2024 10:27 AM SECURITY OPERATIONS ANALYST) Anatomical Region Laterality Modality Chest Computed Radiogr aphy 12/27/2024 10:2 7 AM SECURITY OPERATIONS ANALYST Impressions 12/27/2024 10:32 AM SECURITY OPERATIONS ANALYST IMPRESSION: 1. No acute pulmonary disease. 2. No rib fracture. DICTATION LOCATION: Location 7 [facility] 12/27/2024 10:32 AM SECURITY OPERATIONS ANALYST XR RIBS UNILATERAL RIGHT W PA CHEST [...] rib fracture. DICTATION LOCATION: Location 7 - [facility] Ankit HOGUE DIAGNOSTIC IMAGING ORDERABL ES Final Result * (ABNORMAL) CBC WITH DIFFERENTIAL (12/27/2024 8:58 AM SECURITY OPERATIONS ANALYST) WBC 10.0(H) 4.0 - 9.8 K/uL 12/27/2024 9:10 AM [facility] [employer] [facility] RBC 4.94 4.50 - 5.40 M/uL 12/27/2024 9:10 AM [facility] HEMOGLOBIN 15.7 13.6 - 16.5 g/dL 12/27/2024 9:10 AM [facility] HEMATOCRIT 46.1 40.0 - 48.0 % 12/27/2024 9:10 AM [facility] MCV 93.3 82.0 - 99.0 fL 12/27/2024 9:10 AM [facility] MCH 31.8 27.2 - 32.6 pg 12/27/2024 9:10 AM [facility] MCHC 34.1 31.5 - 35.5 g/dL 12/27/2024 9:10 AM [facility] RDW 13.2 11.5 - 14.5 % 12/27/2024 9:10 AM [facility] RDW-STDEV 45.0 37.1 - 48.7 fL 12/27/2024 9:10 AM [facility] [place] [facility] PLATELETS 248 140 - 350 K/uL 12/27/2024 9:10 AM [facility] MPV 10.1 9.3 - 12.4 fL 12/27/2024 9:10 AM [facility] NEUTROPHILS 44 % 12/27/2024 9:10 AM [facility] LYMPHOCYTES 40 % 12/27/2024 9:10 AM [facility] MONOCYTES 11 % 12/27/2024 9:10 AM [facility] EOSINOPHILS 4 % 12/27/2024 9:10 AM [facility] BASOPHILS 1 % 12/27/2024 9:10 AM [facility] IMMATURE GRANULOCYTES 1 % 12/27/2024 9:10 AM [facility] Comment:IG (Immature Granulo cyte) count includes Metamyelocytes, Myelocytes, and Promyelocytes NEUTROPHIL ABSOLUTE 4.41 1.90 - 7.00 K/uL 12/27/2024 9:10 AM [facility] LYMPHOCYTE ABSOLUTE 3.97 0.70 - 4.50 K/uL 12/27/2024 9:10 AM [facility] MONOCYTE ABSOLUTE 1.05 0.10 - 1.30 K/uL 12/27/2024 9:10 AM [facility] EOSINOPHIL ABSOLUTE 0.35 0.00 - 0.70 K/uL 12/27/2024 9:10 AM [facility] BASOPHILS ABSOLUTE 0.11 0.00 - 0.20 K/uL 12/27/2024 9:10 AM [facility] IMMATURE GRANULOCYTES ABSOLUTE 0.08(H) 0.00 - 0.03 K/uL 12/27/2024 9:10 AM [facility] Blood Venipuncture / Unknown 12/27/2024 8:58 AM SECURITY OPERATIONS ANALYST 12/27/2024 9:03 AM SECURITY OPERATIONS ANALYST us Protocol [facility] Emergency MD HEMATOLOGY ORDERABLES Final Result [facility] CLIA# [id number] [place] [address] * (ABNORMAL) COMPREHENSIVE METABOLIC PANEL (12/27/2024 8:58 AM SECURITY OPERATIONS ANALYST) [facility] SODIUM 139 136 - 145 mmol/L 12/27/2024 9:35 AM [facility] [place] [facility] POTASSIUM 4.3 3.4 - 5.1 mmol/L 12/27/2024 9:35 AM [facility] LABORATORY [facility] CHLORIDE 105 98 - 107 mmol/L 12/27/2024 9:35 AM [facility] [place] [facility] CO2 24 22 - 29 mmol/L 12/27/2024 9:35 AM [facility] [place] [facility] CALCIUM 9.9 8.6 - 10.4 mg/dL 12/27/2024 9:35 AM [facility] [place] [facility] BUN 21(H) 6 - 20 mg/dL 12/27/2024 9:35 AM [facility] [place] [facility] CREATININE 1.09 0.67 - 1.17 mg/dL 12/27/2024 9:35 AM [facility] [place] [facility] GLUCOSE 116(H) 74 - 99 mg/dL 12/27/2024 9:35 AM [facility] TOTAL PROTEIN 6.9 6.3 - 8.7 g/dL 12/27/2024 9:35 AM [facility] [place] [facility] ALBUMIN 4.2 3.5 - 5.2 g/dL 12/27/2024 9:35 AM [facility] [place] [facility] BILIRUBIN TOTAL 0.3 0.3 - 1.2 mg/dL 12/27/2024 9:35 AM [facility] [place] [facility] ALKALINE PHOSPHATASE 49 40 - 150 U/L 12/27/2024 9:35 AM [facility] [place] [facility] AST 20 0 - 41 U/L 12/27/2024 9:35 AM [facility] [place] [facility] ALT 25 0 - 41 U/L 12/27/2024 9:35 AM [facility] LABORATORY [facility] GFR >60 >=60 mL/min/1.7 3 sq meter 12/27/2024 9:35 AM SECURITY OPERATIONS ANALYST [facility] LABORATORY SERVICES [facility] Comment:eGFR calculated with 2020 CKD-EPI equation. Vegetarian diet, extremely high or low muscle mass, and may affect results. Cystatin C with Glomerular Filtration Rate is a suitable alternative for these patients. ANION GAP 10 8 - 16 mmol/L 12/27/2024 9:35 AM SECURITY OPERATIONS ANALYST [facility] LABORATORY [facility] Blood Venipuncture / Unknown 12/27/2024 8:58 AM SECURITY OPERATIONS ANALYST 12/27/2024 9:07 AM SECURITY OPERATIONS ANALYST us Protocol [facility] Emergency MD CHEMISTRY ORDERABLES Final Result [facility] LABORATORY [facility] CLIA# [id number] [place] [address] from Last 3 Months Insurance MYKEL MARTINEZ [id number]
--- OUTSIDE RECORDS SUMMARY | 2025-02-07 01:00 | XMS_ITS | Clinical Summary ---
Author Organization [facility] Address [address] [place] [address] Care Team Providers Care Metal Container Maker Name Role Phone Haroon Landon MD Primary Care Provider [phone] Geovanna Blum MD Unavailable [phone] Allergies Active Allergy Reactions Criticality Noted Date Comments No Known Allergies Other (See comments) Low Reaction: Medications SUMAtriptan (IMITREX) 50 mg tabletIndicatio ns:Migraine 0 05/09/2018 Active fluticasone (FLONASE) 50 mcg/actuation nasal spray SPRAY 2 SPRAYS IN EACH NOSTRIL EVERY DAY 06/26/2017 Active Active Problems No known active problems Encounters Date Type Department Care Team Description 11/13/2024 1:00 PM RECEIVABLES SPECIALIST Clinical Support [facility] Reproductive Endocrinology Lab [address] [place] [address] Encounter for fertility testing (Primary Dx) 11/13/2024 7:02 AM RECEIVABLES SPECIALIST - 11/13/2024 11:59 PM RECEIVABLES SPECIALIST Hospital Encounter [facility] [address], [address] [place] [address] Discharge Disposition: Discharge to home or self care from Last 3 Months Surgical History Surgery Date Site/Laterality Comments UT RHINOPLASTY PRIMARY W/TERA OR SEPTAL REPAIR Complete Rhinoplasty (With Major Septal Repair) - (Added by ANNALISA Conv) UT FRACTURE NASAL INFERIOR TURBINATE THERAPEUTIC Therapeutic Fracture [...] on file Legal Sex Male 6:50 PM RECEIVABLES SPECIALIST Gender Identity Male 06/01/2018 12:33 PM CDT [...] Comments POCT SEMEN Routine 11/13/2024 1:31 PM RECEIVABLES SPECIALIST Encounter for fertility testing from Last 3 Months Results * POCT semen (11/13/2024 1:31 PM RECEIVABLES SPECIALIST) Volume, Semen POC 4.7 >=1.4 ML Viscosity, [...] Analysis Comment:YANI DONALDSON Semen 11/13/2024 1:31 PM RECEIVABLES SPECIALIST Seema Pete, BS - 11/13/2024 2:34 PM RAYMUNDO Veras Mary Veras MD POINT OF CARE TEST O RDERABLES Final Result from Last 3 Months Insurance [facility] [employer] Care Teams Metal Container Maker Relationship Specialty Start Date End Date Haroon aLndon MD [address] [address] PCP - General Family Medicine 10/04/24 Geovanna Blum MD [address] [facility] [address] [address] Pediatrics 10/04/24
--- OUTSIDE RECORDS SUMMARY | 2025-02-07 01:00 | XMS_ITS | Encounter Summary ---
Author Organization [facility] Address [address] [place] [address] Care Team Providers Care Car Electronics Installer Name Role Phone Unavailable Primary Care Provider [...] on file Legal Sex Male 8:46 AM SENIOR SALESFORCE DEVELOPER Gender Identity Not on file Sexual Orientation Not on file documented as of this encounter Plan of Treatment Not on file documented as of this encounter Visit Diagnoses Not on filedocumented in this encounter
--- OUTSIDE RECORDS SUMMARY | 2025-02-07 01:00 | XMS_ITS | Referral Summary ---
Author Organization [facility] Address [address] [place] [address] Care Team Providers Care Health Information Tech Name Role Phone Haroon Landon MD Primary Care Provider Geovanna Blum MD Unavailable [phone] Encounters Date Type Department Care Team Description 11/13/2024 1:00 PM SOURCING MANAGER Clinical Support [facility] Reproductive Endocrinology Lab [address] [address] Encounter for fertility testing (Primary Dx) 11/13/2024 7:02 AM SOURCING MANAGER - 11/13/2024 11:59 PM SOURCING MANAGER Hospital Encounter [facility] [address] [address] Discharge Disposition: Discharge to home [...] on file Legal Sex Male 6:50 PM SOURCING MANAGER Gender Identity Male 06/01/2018 12:33 PM CDT [...] Comments POCT SEMEN Routine 11/13/2024 1:31 PM SOURCING MANAGER Encounter for fertility testing from Last 3 Months Results * POCT semen (11/13/2024 1:31 PM SOURCING MANAGER) Volume, Semen POC 4.7 >=1.4 ML Viscosity, [...] Analysis Comment:YANI DONALDSON Semen 11/13/2024 1:31 PM SOURCING MANAGER Seema Pete BS - 11/13/2024 2:34 PM SOURCING MANAGER Rito Mary Veras MD POINT OF CARE TEST O RDERABLES Final Result from Last 3 Months Insurance [employer] Care Teams Health Information Tech Relationship Specialty Start Date End Date Haroon Landon MD [address] [address] PCP - General Family Medicine 10/04/24 Geovanna Blum MD [address] [place] [id number] Pediatrics 10/04/24
== END 2025-02-07 00:24 | disposition left against medical advice (07) ==
PROVIDERS: PCP Family Medicine
DX: R51.9 Headache, unspecified (principal)
CPT/HCPCS: 99199